=== PATIENT | female | born 1950 | race Caucasian/White ===

== ENCOUNTER 2018-01-18 07:55 | Emergency (ER) | payer OTHER, MEDICARE ==
--- NOTE | 2018-01-18 08:09 | EDPHY ---
H & P Time Seen by Provider: 01/18/18 08:07 HPI/ROS: Chief complaint. Difficulty breathing HPI. 67-year-old female presents emergency department with shortness of breath that began over the last 1-2 days. She and her are visiting from [facility]. They arrive 3 days ago. The patient now has shortness of breath with exertion. Some cough and may be subjective fever. Some pressure in the anterior chest. Her discomfort is worse with taking a deep breath. She has no unusual leg pain or swelling. She did have flu a couple weeks ago. 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 Sounds like it was not really repaired and that she tells me she breathes" space". ROS Constitutional. Possible subjective fever Eyes. no problems with vision ENT. no sore throat, no nasal drainage Cardiovascular. Anterior chest pressure Respiratory. Shortness of breath and cough Abdominal. no abdominal pain, no nausea/vomiting, no diarrhea . no problems urinating MS. no calf pain/swelling, no neck/back pain, no joint pain Skin. no rash Lymph. no swollen glands Neuro. no headache, no dizziness, no difficulty walking or with speech Past Medical/Surgical History: Severed pulmonary artery, carcinoid tumor Social History: , nonsmoker, no alcohol Smoking Status: Never smoked Physical Exam: General Appearance: Alert well-developed female mild distress vital signs are stable Eyes: Pupils equal and round no pallor or injection. ENT, Mouth: Mucous membranes are moist. Respiratory: No retractions. Mild tachypnea. Few scattered wheezes. Cardiovascular: Regular rate and rhythm. Gastrointestinal: Abdomen is soft and nontender, no masses, bowel sounds normal. Neurological: Awake and alert, sensory and motor exams grossly normal. Skin: Warm and dry, no rashes. Musculoskeletal: Neck is supple nontender. Extremities symmetrical, full range of motion. Psychiatric: Patient is oriented X 3, there is no agitation. Constitutional: Initial Vital Signs Temperature (C) 36.4 C 01/18/18 07:57 Heart Rate 79 01/18/18 07:57 Respiratory Rate 24 H 01/18/18 07:57 Blood Pressure 166/95 H 01/18/18 07:57 O2 Sat (%) 96 01/18/18 07:57 O2 Delivery Mode Room Air Allergies/Adverse Reactions: No Known Allergies Allergy (Unverified 01/18/18 07:56) Home Medications: Medication Instructions Recorded Albuterol Hfa Anes Only 01/18/18 Medical Decision Making - Diagnostics EKG Interpretation: EKG interpreted by me shows normal sinus rhythm with normal interval. There is left axis deviation. QRS is normal there is no significant ST elevation or depression. No arrhythmia. The rate is 75 Imaging Results: Imaging Impressions Chest X-Ray 01/18/18 08:27 Impression: 1. 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 2. No active cardiopulmonary disease seen. Chest x-ray interpreted by me shows previous lobectomy on the left with volume loss. No evidence for pneumonia Procedures: Patient gives herself 2 puffs from her albuterol inhaler in the emergency department. IV normal saline, monitor ED Course/Re-evaluation: Re-evaluation at 9:30 a.m.--patient is stable. The patient, her , and I discussed imaging and lab results. We discussed treatment plan including criteria for return and importance of follow-up and further evaluation. They expressed understanding and agreement. They are leaving for [place] this afternoon. They are comfortable without further imaging or testing. Differential Diagnosis: Patient has a lobectomy and has come to altitude and normally lives at [place]. She had little bit of coughing without shortness of breath. No obvious evidence for pneumonia. She has had a lobectomy. I suspect altitude is playing a role in patient's shortness of breath. I have considered pulmonary embolus, pneumonia as well. - Data Points Laboratory Results: Laboratory Results 01/18/18 08:15 01/18/18 08:15 01/18/18 01/18/18 01/18/18 08:15 08:15 08:15 WBC 7.51 10^3/uL 10^3/uL (3.80-9.50) RBC 4.37 10^6/uL 10^6/uL (4.18-5.33) Hgb 14.0 g/dL g/dL (12.6-16.3) Hct 41.6 % % (38.0-47.0) MCV 95.2 fL fL (81.5-99.8) MCH 32.0 pg pg (27.9-34.1) MCHC 33.7 g/dL g/dL (32.4-36.7) RDW 13.1 % % (11.5-15.2) Plt Count 247 10^3/uL 10^3/uL (150-400) MPV 10.0 fL fL (8.7-11.7) Neut % (Auto) 43.7 % % (39.3-74.2) Lymph % (Auto) 44.1 % % (15.0-45.0) [place] % (Auto) 6.7 % % (4.5-13.0) Eos % (Auto) 4.3 % % (0.6-7.6) Baso % (Auto) 0.9 % % (0.3-1.7) Nucleat RBC Rel Count 0.0 % % (0.0-0.2) Absolute Neuts (auto) 3.29 10^3/uL 10^3/uL (1.70-6.50) Absolute Lymphs (auto) 3.31 10^3/uL H 10^3/uL (1.00-3.00) Absolute Monos (auto) 0.50 10^3/uL 10^3/uL (0.30-0.80) Absolute Eos (auto) 0.32 10^3/uL 10^3/uL (0.03-0.40) Absolute Basos (auto) 0.07 10^3/uL 10^3/uL (0.02-0.10) Absolute Nucleated RBC 0.00 10^3/uL 10^3/uL (0-0.01) Immature Gran % 0.3 % % (0.0-1.1) Immature Gran # 0.02 10^3/uL 10^3/uL (0.00-0.10) D-Dimer 0.30 ug/mLFEU ug/mLFEU (0.00-0.50) Sodium 144 mEq/L mEq/L (135-145) Potassium 4.8 mEq/L mEq/L (3.5-5.2) Chloride 105 mEq/L mEq/L (97-110) Carbon Dioxide 25 mEq/l mEq/l (22-31) Anion Gap 14 mEq/L mEq/L (8-16) BUN 19 mg/dL mg/dL (7-23) Creatinine 0.7 mg/dL mg/dL (0.6-1.0) Estimated GFR > 60 Glucose 99 mg/dL mg/dL (70-100) Calcium 9.8 mg/dL mg/dL (8.5-10.4) Troponin I < 0.012 ng/mL ng/mL (0.000-0.034) NT-Pro-B Natriuret Pep 79 pg/mL pg/mL (0-125) Medications Given: Discontinued Medications Sodium Chloride (Ns) 1,000 mls @ 0 mls/hr IV EDNOW ONE; Wide Open PRN Reason: Protocol Stop: 01/18/18 08:28 Last Admin: 01/18/18 08:57 Dose: 1,000 mls Departure - Departure Disposition: Home, Routine, Self-Care Clinical Impression: Dyspnea Qualifiers: Dyspnea type: dyspnea on exertion Qualified Code(s): R06.09 - Other forms of dyspnea Condition: Good Instructions: Dyspnea (ED) Additional Instructions: Continue using your albuterol inhaler using 2 puffs every 2-4 hours as necessary for breathing. It will help with cough is well. Return for worsening breathing. Follow up with your regular healthcare provider when he returns home to [place] for any continuing symptoms. Referrals: NONE *PRIMARY CARE P,. [Primary Care Provider] - As per Instructions
--- NOTE | 2018-01-18 08:18 | CPEKG ---
Heart Rate: 75 RR Interval: 800 P-R Interval: 148 QRSD Interval: 72 QT Interval: 376 QTC Interval: 420 P Shannon: 71 QRS Shannon: 13 T Wave Shannon: 40 EKG Severity - NORMAL ECG - EKG Impression: SINUS RHYTHM Electronically Signed By: Alejo Wu 18-Jan-2018 15:45:28
[2018-01-18] MEDS ORDERED: NS 1,000 ML IV ONE (08:27)
[2018-01-18 08:32] LABS: PLATELET COUNT 247 10^3/uL (150-400)
[2018-01-18 10:05] VITALS: BP 144/75; PULSE 96; RESP 16; TEMP 97.7; O2SAT 98
== END 2018-01-18 10:04 | disposition home or self-care (01) ==
DX: R06.09 Other forms of dyspnea (principal); E86.9 Volume depletion, unspecified